=== PATIENT | female | born 1945 | race Caucasian/White ===

== ENCOUNTER → 2024-05-20 10:08 | Outpatient (REF) | payer MEDICARE, SELFPAY | LOC: HWWDC 10:08 | PROVIDERS: ATTENDING PHYSICIAN Nurse Practitioner Family; FAMILY PHYSICIAN Family Medicine | DX: Z12.31 Encounter for screening mammogram for malignant neoplasm of breast (principal) | CPT/HCPCS: 77063; 77067 ==

== ENCOUNTER → 2024-08-08 10:26 | Outpatient (REF) | payer MEDICARE, SELFPAY | LOC: RAD 10:26 | PROVIDERS: ATTENDING PHYSICIAN Internal Medicine Rheumatology; FAMILY PHYSICIAN Family Medicine | DX: M81.0 Age-related osteoporosis without current pathological fracture (principal); Z13.820 Encounter for screening for osteoporosis | CPT/HCPCS: 77080 ==

== ENCOUNTER 2025-05-08 10:01 | Emergency (ER) | payer MEDICARE, SELFPAY ==
[2025-05-08 10:03] VITALS: BP 155/74
--- NOTE | 2025-05-08 10:27 | ED.SKININJ ---
HPI-Injury
General
Chief Complaint: Skin Surface Trauma
Source: patient
Exam Limitations: none
Time Seen by Provider: 05/08/25 10:19
History of Present Illness-Injury
Initial Injury comments:
79-year-old female presents for evaluation of swelling and erythema and pain to the right greater than the left leg. 1 week ago, she was on a cruise and fell down some steps and scraped her shins. She then developed what sounds like hematoma
including swelling and bruising. The bruising has since spread. She saw urgent care yesterday and started on Bactrim for the open wounds. She spoke with her family doctor today who sent her here for imaging. They are concerned about DVT and
fracture. She denies chest pain or shortness of breath. She denies fevers. She is not diabetic. Ejection some improvement of her swelling since yesterday
Phy Exam
Physical Exam
Physical Exam:
General: Well-appearing female no acute respiratory distress
HEENT normal cephalic atraumatic
Skin: 3 separate open wounds anterior right davis surrounded by ecchymosis and slight amount of erythema. There is no drainage there is no lymphangitic streaking the sites are mildly tender extremities: Hematoma with ecchymosis noted to the right
davis spreading to the ankle and localized on the left anterior davis
Course
Orders/Labs/Results
Orders:
Orders
05/08/25 10:26
CR Leg Tibia/fibula Left 2 Vw Urgent
Comment:
Reason For Exam: fall
CR Leg Tibia/fibula Right 2 Vw Urgent
Comment:
Reason For Exam: fall
Venous Doppler Lwr Ext Bilat [US Periph Venous LOWER Ext Samuel] Urgent
Comment:
Reason For Exam: swelling
Vital Signs
Initial and Last Documented VS:
Initial Vital Signs
Temp Pulse Resp BP Pulse Ox
97.9 F 100 20 155/74 98
05/08/25 10:03 05/08/25 10:03 05/08/25 10:03 05/08/25 10:03 05/08/25 10:03
Last Documented Vital Signs
Temp Pulse Resp BP Pulse Ox
97.9 F 100 20 155/74 98
05/08/25 10:03 05/08/25 10:03 05/08/25 10:03 05/08/25 10:03 05/08/25 10:29
MDM/Problems Addressed
Differential Diagnosis Includes:
Patient fell 1 week ago scraping her davis on the edge of the step. Hemoglobin family doctor with increasing bruising and swelling to the legs. Consider scheduling hematoma versus cellulitis. No exam findings concerning for abscess. Also concern
for DVT. Ultrasound both legs pending x-ray both legs pending
*Pulse Oximetry
SaO2: 98
Oxygen Mode of Delivery: Room air
Patient hypoxic: no
*Critical Care Note
Total Time (30-74mins, 75-104mins- exclusive of procedures): Not Applicable
Update Note
Update Note:
Bilateral ultrasounds negative. Bilateral x-rays negative. Patient will continue antibiotics and keep elevating the legs. Stable for discharge I suspect mainly this is a hematoma that settled
ED Attending Note
-
Portions of this chart may have been created with voice recognition software.� Occasional wrong word or��sound alike� substitutions may have occurred due to the inherent limitations of voice recognition software.
Discharge Plan
Departure
Patient Disposition: Home (Routine Discharge)
Date of Disposition: 05/08/25
Time of Disposition: 12:05
Patient with high blood pressure during this ER visit?: No
Discharge Problem:
Hematoma
Instructions: Wound Care (DC)
Referrals:
Olga Callahan DO [Family Provider, Family Practice]
Activity Restrictions/Additional Instructions:
Keep elevated for swelling. Continue your antibiotics. Return if worse otherwise follow-up with your doctor
Interventions
Interventions:
*General Assessment Last Done: 05/08/25 10:03
*Neglect/Abuse Screening Last Done: 05/08/25 10:03
*ED COVID-19 Vaccine History Last Done: 05/08/25 10:55
*ED Influenza Vaccine History Last Done: 05/08/25 10:55
[facility] Fall Risk Assessment Tool Last Done: 05/08/25 10:15
ED-Skin Assessment Last Done: 05/08/25 10:55
Discharge Date and Time
Print Language: SINHALA
[2025-05-08 12:19] VITALS: BP 148/74
== END 2025-05-08 12:20 | disposition home or self-care (01) ==
LOC: EMR 10:01
PROVIDERS: EMERGENCY PHYSICIAN Emergency Medicine; FAMILY PHYSICIAN Family Medicine
DX: S80.11XA Contusion of right lower leg, initial encounter (principal); W10.9XXA Fall (on) (from) unspecified stairs and steps, initial encounter
CPT/HCPCS: 99284; 73590; 93970